=== PATIENT | male | born 1945 | race Caucasian/White ===

== ENCOUNTER 2016-05-15 21:19 | Day surgery (SDCO) | payer MEDICARE, OTHER ==
[~2016-05-15 21:19] MED LIST: ATIVAN0.5 MG PO; BUMEX1 MG PO; COREG 6.25MG6.25 MG PO; COREG12.5 MG PO; COUMADIN2.5 MG PO; COUMADIN5 MG PO; DIGITEK125 MCG PO; FEOSOL325 MG PO; FLOMAX 0.4 MG0.4 MG PO; IMDUR 30MG TABL30 MG PO; LIPITOR40 MG PO; NITROQUIK SL0.4 MG SL; NORVASC2.5 MG PO; NORVASC5 MG PO; PRINIVIL10 MG PO; SYNTHROID25 MCG PO; VENTOLIN (2.5 MG/3 M INH
[2016-05-15 21:40] LABS: BASOPHIL 0.7 % (0-2); EOSINOPHIL 7.4 % (0-7); HCT 38.2 % (42.0-52.0); HGB 13.2 g/dl (13.2-18.0); LYMPHOCYTE 20.4 % (15-48); MCH 32.6 pg (25.0-31.0); MCHC 34.6 g/dL (32.0-36.0); MCV 94.3 fL (78.0-100.0); MONOCYTE 9.7 % (0-12); MPV 10.7 fL (6.0-9.5); NEUTROPHIL 61.8 % (41-80); PLT 205 K/uL (150-400); RBC 4.05 M/uL (4.70-6.00); RDW 14.4 % (11.5-14.0); WBC 10.2 K/uL (4.0-10.5)
[2016-05-15 21:55] LABS: INR 2.12 (0.9-1.2); PROTHROMBIN TIME 23.1 SECONDS (11.7-14.0)
[2016-05-15 21:56] LABS: PTT 34.5 SECONDS (23.2-31.4)
[2016-05-15 22:06] LABS: ALBUMIN 3.7 g/dL (3.4-4.8); BILIRUBIN - TOTAL 0.4 mg/dL (0.1-1.0); CKMB 1.86 ng/mL (0.97-4.94); CREATININE 1.8 mg/dL (0.7-1.2); GLOBULIN (CALCULATION) 2.8 g/dL (2.2-4.2); MAGNESIUM 2.04 mg/dL (1.40-2.10); MYOGLOBIN 75 ng/mL (26-65); TOTAL PROTEIN 6.5 g/dL (6.4-8.3); TROPONIN T < 0.010 ng/mL
[2016-05-15 22:09] LABS: PRO-BNP 180 pg/mL (0-125)
[2016-05-16 04:46] LABS: CKMB 1.68 ng/mL (0.97-4.94); TROPONIN T < 0.010 ng/mL
[2016-05-16 09:47] LABS: BASOPHIL 0.6 % (0-2); EOSINOPHIL 9.9 % (0-7); HCT 39.1 % (42.0-52.0); HGB 13.1 g/dl (13.2-18.0); LYMPHOCYTE 20.6 % (15-48); MCHC 33.5 g/dL (32.0-36.0); MCV 95.6 fL (78.0-100.0); MONOCYTE 8.2 % (0-12); MPV 10.4 fL (6.0-9.5); NEUTROPHIL 60.7 % (41-80); PLT 177 K/uL (150-400); RBC 4.09 M/uL (4.70-6.00); RDW 14.7 % (11.5-14.0); WBC 7.8 K/uL (4.0-10.5)
[2016-05-16 09:58] LABS: INR 2.25 (0.9-1.2); PROTHROMBIN TIME 24.2 SECONDS (11.7-14.0); PTT 37.7 SECONDS (23.2-31.4)
[2016-05-16 10:07] LABS: ALBUMIN 3.9 g/dL (3.4-4.8); BILIRUBIN - TOTAL 0.5 mg/dL (0.1-1.0); CREATININE 1.3 mg/dL (0.7-1.2); GLOBULIN (CALCULATION) 2.5 g/dL (2.2-4.2); POTASSIUM 4.3 mmol/L (3.5-5.1); TOTAL PROTEIN 6.4 g/dL (6.4-8.3)
[2016-05-16 10:09] LABS: CKMB 1.89 ng/mL (0.97-4.94); TROPONIN T < 0.010 ng/mL
[2016-05-16 10:16] LABS: FT4 (FREE T4) 1.42 ng/dL (0.93-1.70); TSH (THYROID STIM HORMONE) 1.33 uIU/mL (0.270-4.200)
== END 2016-05-16 14:15 | disposition home or self-care (01) ==
LOC: FER 21:19 → FTCU 05-16 00:32
PROVIDERS: Emergency Medicine; ADMIT Internal Medicine Adolescent Medicine
DX: R07.9 Chest pain, unspecified (principal); I13.0 Hypertensive heart and chronic kidney disease with heart failure and stage 1 through stage 4 chronic kidney disease, or unspecified chronic kidney disease; N18.3 Chronic kidney disease, stage 3 (moderate); I50.32 Chronic diastolic (congestive) heart failure; I25.10 Atherosclerotic heart disease of native coronary artery without angina pectoris; I48.0 Paroxysmal atrial fibrillation; K21.9 Gastro-esophageal reflux disease without esophagitis; J44.9 Chronic obstructive pulmonary disease, unspecified; F41.9 Anxiety disorder, unspecified; E66.9 Obesity, unspecified; E78.5 Hyperlipidemia, unspecified; E03.9 Hypothyroidism, unspecified; G47.33 Obstructive sleep apnea (adult) (pediatric); Z99.81 Dependence on supplemental oxygen; Z95.810 Presence of automatic (implantable) cardiac defibrillator; Z96.653 Presence of artificial knee joint, bilateral; Z96.649 Presence of unspecified artificial hip joint; Z95.5 Presence of coronary angioplasty implant and graft; Z87.891 Personal history of nicotine dependence; Z79.01 Long term (current) use of anticoagulants; Z79.899 Other long term (current) drug therapy
CPT/HCPCS: 36415; 71010; 80053; 80061; 82550; 82553; 83735; 83874; 83880; 84439; 84443; 84484; 85025; 85610; 85730; 93005; 94010; 94640; G0378

== ENCOUNTER 2016-08-04 09:28 | Emergency (ER) | payer MEDICARE, OTHER ==
[2016-08-04 10:09] LABS: BASOPHIL 0.5 % (0-2); EOSINOPHIL 7.3 % (0-7); HCT 39.3 % (42.0-52.0); HGB 13.1 g/dl (13.2-18.0); MCH 32.6 pg (25.0-31.0); MCHC 33.3 g/dL (32.0-36.0); MCV 97.8 fL (78.0-100.0); MONOCYTE 10.2 % (0-12); MPV 10.5 fL (6.0-9.5); PLT 216 K/uL (150-400); RBC 4.02 M/uL (4.70-6.00); RDW 14.1 % (11.5-14.0); WBC 9.4 K/uL (4.0-10.5)
[2016-08-04 10:18] LABS: ALBUMIN 3.8 g/dL (3.4-4.8); BILIRUBIN - TOTAL 0.4 mg/dL (0.1-1.0); CREATININE 1.6 mg/dL (0.7-1.2); GLOBULIN (CALCULATION) 3.2 g/dL (2.2-4.2); POTASSIUM 4.7 mmol/L (3.5-5.1)
[2016-08-04 11:40] LABS: BILIRUBIN NEGATIVE (NEGATIVE); BLOOD NEGATIVE Ery/uL (NEGATIVE); CLARITY CLEAR (CLEAR); COLOR YELLOW (YELLOW); GLUCOSE (U) NORMAL (NORMAL); KETONE (U) NEGATIVE (NEGATIVE); LEUKOCYTES 1+ Leu/uL (NEGATIVE); NITRITE NEGATIVE (NEGATIVE); PROTEIN NEGATIVE (NEGATIVE); SPECIFIC GRAVITY <=1.005 (1.001-1.030); UROBILINOGEN 0.2 mg/dL (0.2-1.0)
[2016-08-04 11:46] LABS: BACTERIA 1+
== END 2016-08-04 14:06 | disposition home or self-care (01) ==
LOC: FER 09:28
PROVIDERS: Internal Medicine
DX: S29.011A Strain of muscle and tendon of front wall of thorax, initial encounter (principal); J44.0 Chronic obstructive pulmonary disease with (acute) lower respiratory infection; J20.9 Acute bronchitis, unspecified; I10 Essential (primary) hypertension; Z95.0 Presence of cardiac pacemaker; Z87.891 Personal history of nicotine dependence
CPT/HCPCS: 36415; 71010; 80053; 81001; 83605; 84484; 85025; 86403; 87040; 87070; 87077; 87186; 87205; 93005; J1885; J2930

== ENCOUNTER 2020-04-10 19:49 | Inpatient (IN) | payer MEDICARE, OTHER ==
[~2020-04-10 19:49] MED LIST changes: +ALDACTONE25 M1 PO; +ALDACTONE25 MG PO; +AMIODARONE HCL200 M1 PO; +AMIODARONE HCL200 MG PO; +AUGMENTIN 875-1 EACH PO; +CARDURA1 MG PO; +CEFDINIR300 MG PO; +DIGITEK250 MCG PO; +IBUPROFEN800 MG PO; +ISOSORBIDE MONO60 MG PO; +LACTINEX1 EACH PO; +LEVAQUIN750 MG PO; +MEDROL 4MG DOSEP4 MG PO; +PERCOCET 5-3251 EACH PO; +PREDNISONE 10MG10 MG PO; +PREDNISONE 20MG20 MG PO; +RANEXA500 M1 PO; +RANEXA500 MG PO; +VIBRAMYCIN100 MG PO
[2020-04-10 20:07] LABS: BASOPHIL 0.2 % (0-2); EOSINOPHIL 0.1 % (0-7); HCT 40.1 % (42.0-52.0); LYMPHOCYTE 8.3 % (15-48); MCH 32.7 pg (25.0-31.0); MCHC 32.4 g/dL (32.0-36.0); MCV 100.8 fL (78.0-100.0); MONOCYTE 5.7 % (0-12); MPV 10.4 fL (6.0-9.5); NEUTROPHIL 83.9 % (41-80); NRBC 0; PLT 119 K/uL (150-400); RBC 3.98 M/uL (4.70-6.00); RDW 14.1 % (11.5-14.0); WBC 16.9 K/uL (4.0-10.5)
[2020-04-10 20:27] LABS: PRO-BNP 806 pg/mL (<450)
[2020-04-10 20:29] LABS: ALBUMIN 2.8 g/dL (3.4-5.0); BILIRUBIN - TOTAL 0.8 mg/dL (0.2-1.0); BUN/CREAT RATIO (CALC) 22.9 RATIO; C-REACTIVE PROTEIN 4.6 mg/dL (<=0.90); CREATININE 1.31 mg/dL (0.67-1.17); GLOBULIN (CALCULATION) 3.7 g/dL; POTASSIUM 4.5 mmol/L (3.5-5.1); TOTAL PROTEIN 6.5 g/dL (6.4-8.2)
[2020-04-10 20:45] LABS: LACTIC ACID 2.1 mmol/L (0.4-1.9)
[2020-04-10 20:47] LABS: BILIRUBIN NEGATIVE (NEGATIVE); BLOOD NEGATIVE Ery/uL (NEGATIVE); CLARITY CLEAR (CLEAR); COLOR YELLOW (YELLOW); GLUCOSE (U) NORMAL (NORMAL); LEUKOCYTES NEGATIVE Leu/uL (NEGATIVE); NITRITE NEGATIVE (NEGATIVE); PROTEIN NEGATIVE (NEGATIVE); UROBILINOGEN 0.2 mg/dL (0.2-1.0)
[2020-04-10 21:19] LABS: CORONAVIRUS 2019 SARS-COV-2 NEGATIVE (NEGATIVE); INFLUENZA A NAA NEGATIVE (NEGATIVE)
[2020-04-11] MEDS ORDERED: LISINOPRIL10 MG PO (01:51)
[2020-04-11] MEDS ORDERED: LIPITOR20 MG PO (01:52)
[2020-04-11] MEDS ORDERED: FEOSOL325 MG PO (01:53)
[2020-04-11] MEDS ORDERED: COREG12.5 MG PO (01:53)
[2020-04-11] MEDS ORDERED: LEVOTHYROXINE75 MC2 PO (01:54)
[2020-04-11] MEDS ORDERED: ASPIRIN EC81 MG PO (01:55)
[2020-04-11] MEDS ORDERED: BUMETANIDE1 MG PO (01:56)
[2020-04-11] MEDS ORDERED: RANEXA500 MG PO (02:01)
[2020-04-11] MEDS ORDERED: IMDUR 30MG TABL30 MG PO (02:02)
[2020-04-11] MEDS ORDERED: BROVANA15 MCG/2 M INH (02:04)
[2020-04-11] MEDS ORDERED: PULMICORT0.5 MG/2 M NEB (02:04)
[2020-04-11] MEDS ORDERED: SPIRIVA 18MCG18 MCG INH (02:06)
[2020-04-11] MEDS ORDERED: VENTOLIN (2.5 MG/3 M INH (02:07)
[2020-04-11] MEDS ORDERED: WARFARIN SODIUM5 MG PO (02:09)
[2020-04-11] MEDS ORDERED: WARFARIN SODIUM2 MG PO (02:11)
--- NOTE | 2020-04-11 02:14 | NUR ---
0100: PT RECEIVED ADMIT FROM ED. ORIENTED PT TO ROOM AND CALL LIGHT. PT PLACED ON SAFETY LEADER.
[2020-04-11 06:12] LABS: BASOPHIL 0.2 % (0-2); EOSINOPHIL 0 % (0-7); HCT 36.8 % (42.0-52.0); LYMPHOCYTE 4.3 % (15-48); MCH 32.6 pg (25.0-31.0); MCHC 32.6 g/dL (32.0-36.0); MONOCYTE 6.9 % (0-12); MPV 10.5 fL (6.0-9.5); NEUTROPHIL 86.7 % (41-80); NRBC 0; PLT 110 K/uL (150-400); RBC 3.68 M/uL (4.70-6.00); RDW 14.3 % (11.5-14.0); WBC 24.5 K/uL (4.0-10.5)
[2020-04-11 06:19] LABS: INR 1.97 (0.9-1.2); PROTHROMBIN TIME 21.3 SECONDS (11.4-13.6)
[2020-04-11 06:43] LABS: BUN/CREAT RATIO (CALC) 20.9 RATIO; CREATININE 1.34 mg/dL (0.67-1.17); POTASSIUM 4.1 mmol/L (3.5-5.1)
--- NOTE | 2020-04-11 15:52 | NUR ---
PT REPORTS HE LIVES WITH SON; HOME 02; INDPENDENT HE REPORTS WITH [facility]L'S PLEASE ADVISE OF ANY DISCHARGE NEEDS
[2020-04-12 06:40] LABS: BASOPHIL 0.3 % (0-2); EOSINOPHIL 0 % (0-7); HCT 35.9 % (42.0-52.0); HGB 11.9 g/dl (13.2-18.0); LYMPHOCYTE 4.5 % (15-48); MCH 32.6 pg (25.0-31.0); MCHC 33.1 g/dL (32.0-36.0); MCV 98.4 fL (78.0-100.0); MONOCYTE 3.1 % (0-12); MPV 10.4 fL (6.0-9.5); NEUTROPHIL 89.9 % (41-80); NRBC 0; PLT 104 K/uL (150-400); RBC 3.65 M/uL (4.70-6.00); WBC 16.6 K/uL (4.0-10.5)
[2020-04-12 06:49] LABS: INR 1.71 (0.9-1.2); PROTHROMBIN TIME 19.1 SECONDS (11.4-13.6)
[2020-04-12 06:52] LABS: BUN/CREAT RATIO (CALC) 26.3 RATIO; CREATININE 1.33 mg/dL (0.67-1.17); POTASSIUM 4.1 mmol/L (3.5-5.1)
--- NOTE | 2020-04-12 12:27 | NUR ---
04/12/20 Mr. Cortez was in [place] 2019. His son and grandson live in the home. Mr. Cortez has 02, concentrator, rw, and elevated toilets. No needs are anticipated at discharge.
[2020-04-12] MEDS ORDERED: CEFDINIR300 MG PO (14:30)
[2020-04-12] MEDS ORDERED: PREDNISONE 20MG20 MG PO (14:30)
--- NOTE | 2020-04-12 15:46 | NUR ---
PT GIVEN D/C INSTRUCTIONS, VERBALIZED UNDERSTANDING. PATIENT TAKEN TO CAR, HOME O2 IN CAR
== END 2020-04-12 15:47 | disposition home or self-care (01) | DRG 871 ==
LOC: FER 19:49 → FMS 04-11 00:16
PROVIDERS: Emergency Medicine Emergency Medical Services; Internal Medicine; Nurse Practitioner; ADMIT Hospitalist
DX: A41.9 Sepsis, unspecified organism (principal); J18.9 Pneumonia, unspecified organism; J96.21 Acute and chronic respiratory failure with hypoxia; J44.1 Chronic obstructive pulmonary disease with (acute) exacerbation; J44.0 Chronic obstructive pulmonary disease with (acute) lower respiratory infection; I13.0 Hypertensive heart and chronic kidney disease with heart failure and stage 1 through stage 4 chronic kidney disease, or unspecified chronic kidney disease; I50.32 Chronic diastolic (congestive) heart failure; Z20.822 Contact with and (suspected) exposure to COVID-19; Z96.653 Presence of artificial knee joint, bilateral; I25.10 Atherosclerotic heart disease of native coronary artery without angina pectoris; G47.33 Obstructive sleep apnea (adult) (pediatric); I48.0 Paroxysmal atrial fibrillation; E03.9 Hypothyroidism, unspecified; M19.90 Unspecified osteoarthritis, unspecified site; K21.9 Gastro-esophageal reflux disease without esophagitis; Z96.641 Presence of right artificial hip joint; N18.30 Chronic kidney disease, stage 3 unspecified; E78.5 Hyperlipidemia, unspecified; Z95.0 Presence of cardiac pacemaker; I25.2 Old myocardial infarction; Z95.5 Presence of coronary angioplasty implant and graft; Z98.42 Cataract extraction status, left eye; Z98.41 Cataract extraction status, right eye; Z87.891 Personal history of nicotine dependence
CPT/HCPCS: 36415; 36600; 71045; 80048; 80053; 81003; 82728; 82803; 83605; 83615; 83880; 84145; 84443; 84484; 85025; 85379; 85610; 86140; 87040; 87088; 93005; 94010; 94640; 94664; 94667; 94668; J1100; J2543; J2920; J3370; J7040; U0002

== ENCOUNTER 2020-09-14 12:53 | Emergency (ER) | payer MEDICARE, OTHER ==
[~2020-09-14 12:53] MED LIST changes: +ASPIRIN EC81 MG PO; +BROVANA15 MCG/2 M INH; +BUMETANIDE1 MG PO; +LEVOTHYROXINE75 MC2 PO; +LIPITOR20 MG PO; +LISINOPRIL10 MG PO; +PULMICORT0.5 MG/2 M NEB; +SPIRIVA 18MCG18 MCG INH; +WARFARIN SODIUM2 MG PO; +WARFARIN SODIUM5 MG PO
[2020-09-14 15:48] LABS: BASOPHIL 0.9 % (0-2); EOSINOPHIL 5.3 % (0-7); HCT 36.7 % (42.0-52.0); HGB 12.1 g/dl (13.2-18.0); LYMPHOCYTE 20.9 % (15-48); MCV 97.1 fL (78.0-100.0); MONOCYTE 11.3 % (0-12); MPV 11.6 fL (6.0-9.5); NEUTROPHIL 61.3 % (41-80); NRBC 0; PLT 173 K/uL (150-400); RBC 3.78 M/uL (4.70-6.00); RDW 13.8 % (11.5-14.0); WBC 8.7 K/uL (4.0-10.5)
[2020-09-14 15:53] LABS: INR 2.35 (0.9-1.2); PROTHROMBIN TIME 24.5 SECONDS (11.4-13.6)
[2020-09-14 15:58] LABS: ALBUMIN 3.3 g/dL (3.4-5.0); BILIRUBIN - TOTAL 0.6 mg/dL (0.2-1.0); CREATININE 1.39 mg/dL (0.67-1.17); GLOBULIN (CALCULATION) 3.8 g/dL; POTASSIUM 4.1 mmol/L (3.5-5.1); TOTAL PROTEIN 7.1 g/dL (6.4-8.2)
== END 2020-09-14 18:40 | disposition other institution (70) ==
LOC: FER 12:53
PROVIDERS: Physician Assistant
DX: S27.819A Unspecified injury of esophagus (thoracic part), initial encounter (principal); H61.21 Impacted cerumen, right ear; I13.0 Hypertensive heart and chronic kidney disease with heart failure and stage 1 through stage 4 chronic kidney disease, or unspecified chronic kidney disease; N18.30 Chronic kidney disease, stage 3 unspecified; I50.9 Heart failure, unspecified; I25.2 Old myocardial infarction; J44.9 Chronic obstructive pulmonary disease, unspecified; G47.33 Obstructive sleep apnea (adult) (pediatric); Z99.89 Dependence on other enabling machines and devices; Z95.1 Presence of aortocoronary bypass graft; Z99.81 Dependence on supplemental oxygen; Z79.82 Long term (current) use of aspirin; X10.1XXA Contact with hot food, initial encounter
CPT/HCPCS: 36415; 70360; 71045; 80053; 85025; 85610; C9113; J2270; J2405; J7040